=== PATIENT | male | born 1975 | race Two or more races ===

== ENCOUNTER 2018-03-19 22:05 | Emergency (ER) | payer MEDICAID ==
[~2018-03-19] VITALS: Ht 177.8 cm; Wt 81.6 kg
[~2018-03-19 22:05] MED LIST: HYDR-4683 GT; METO-158 PO; NORPTMEDS CO
[2018-03-20] MEDS ORDERED: traMADol HCL 50 MG TAB PO ONE (07:30)
[2018-03-20 07:50] VITALS: BP 134/88
== END 2018-03-20 08:13 | disposition home or self-care (01) ==
LOC: ER 22:05
DX: S50.01XA Contusion of right elbow, initial encounter (principal); I10 Essential (primary) hypertension; F17.210 Nicotine dependence, cigarettes, uncomplicated; Z90.49 Acquired absence of other specified parts of digestive tract; Z79.899 Other long term (current) drug therapy; W20.8XXA Other cause of strike by thrown, projected or falling object, initial encounter; Y93.89 Activity, other specified; Y99.8 Other external cause status; Y92.59 Other trade areas as the place of occurrence of the external cause
CPT/HCPCS: 73080

== ENCOUNTER 2018-10-02 20:03 | Emergency (ER) | payer SELFPAY ==
[~2018-10-02] VITALS: Ht 177.8 cm; Wt 81.6 kg
[2018-10-02 20:19] VITALS: BP 162/105
[2018-10-02] MEDS ORDERED: cloNIDine HCL 0.1 MG TAB ONE (20:28)
[2018-10-02] MEDS ORDERED: cloNIDine HCL 0.1 MG TAB PO ONE (20:45)
== END 2018-10-03 02:05 | disposition home or self-care (01) ==
LOC: ER 20:07
DX: H10.33 Unspecified acute conjunctivitis, bilateral (principal); I10 Essential (primary) hypertension; F17.210 Nicotine dependence, cigarettes, uncomplicated; F12.10 Cannabis abuse, uncomplicated; Z90.49 Acquired absence of other specified parts of digestive tract

== ENCOUNTER 2019-01-26 09:02 | Emergency (ER) | payer MEDICAID ==
[~2019-01-26] VITALS: Ht 177.8 cm; Wt 83.9 kg
[2019-01-26 09:56] LABS: Basophils # (auto) 0.1 uL; Basophils % (auto) 0.7 % (0.0-2.0); Eosinophils # (auto) 0.4 uL; Eosinophils % (auto) 5.1 % (0.0-7.0); Hemoglobin 16.7 g/dL (13.5-17.5); Lymphocytes % (auto) 22.4 % (10.0-50.0); Mean Corpuscular Hemoglobin 30.2 pg (28.0-32.0); Mean Corpuscular Hgb Conc. 34.7 g/dL (32.0-36.0); Mean Corpuscular Volume 86.8 fL (80.0-100.0); Monocytes # (auto) 0.7 uL; Monocytes % (auto) 8.4 % (0.0-12.0); Neutrophils # (auto) 5.5 uL; Neutrophils % (auto) 63.4 % (37.0-80.0); Platelet Count (auto) 284 10^3/uL (140-450); Red Blood Cells 5.53 10^6/uL (4.5-5.90); White Blood Cell 8.7 10^3/uL (4.4-10.8)
[2019-01-26 10:09] LABS: Alanine Aminotransferase 55 U/L (16-61); Anion Gap 23 (5-15); Aspartate Aminotransferase 17 U/L (15-37); BUN/Creatinine Ratio 17.2; Blood Urea Nitrogen 17 mg/dL (7-18); Carbon Dioxide 13 mmol/L (21-32); Chloride 107 mmol/L (98-107); GFR African American 107 mL/min; GFR Non-African American 89 mL/min; Potassium 3.3 mmol/L (3.5-5.1); Sodium 143 mmol/L (136-145)
[2019-01-26 10:12] LABS: Alkaline Phosphatase 106 U/L (45-117); Bilirubin, Total 0.7 mg/dL (0.2-1.0); Total Protein 7.4 g/dL (6.4-8.2)
[2019-01-26 10:33] LABS: Calcium 8.6 mg/dL (8.5-10.1); Glucose 65 mg/dL (74-106)
[2019-01-26 10:47] LABS: Urine Bacteria NONE SEEN /hpf (None Seen); Urine Blood Negative /uL (Negative); Urine Specific Gravity 1.029 (1.001-1.035); Urine WBC 2 /hpf (0 - 3)
[2019-01-26] MEDS ORDERED: POTASSIUM EFFERVESENT TAB 25 MEQ PO ONE (13:00)
[2019-01-26 13:15] VITALS: BP 137/98
== END 2019-01-26 13:15 | disposition home or self-care (01) ==
LOC: ER 09:02
DX: R10.13 Epigastric pain (principal); E87.6 Hypokalemia; I10 Essential (primary) hypertension; F17.210 Nicotine dependence, cigarettes, uncomplicated; Z79.899 Other long term (current) drug therapy; Z90.49 Acquired absence of other specified parts of digestive tract
CPT/HCPCS: 36415; 74176; 80053; 81001; 85025